=== PATIENT | female | born 1970 | race Hispanic/Latino ===

== ENCOUNTER 2016-08-12 10:25 | Outpatient (CLI) | payer BC, SELFPAY ==
[2016-08-12 11:29] LABS: ALT (SGPT) 16 U/L (0-55); AST (SGOT) 16 U/L (5-34); Alkaline Phosphatase 63 U/L (40-150); Anion Gap 14 mmol/L (10-20); BUN (Urea Nitrogen) 18 mg/dL (7.0-18.7); Bilirubin, Total 0.4 mg/dL (0.2-1.2); Calc. Creatinine Clearance 0 mL/min (70-130); Calcium 9.4 mg/dL (7.8-10.44); Carbon Dioxide 26 mmol/L (22-29); Chloride 104 mmol/L (98-107); Estimated GFR-MDRD 87; Globulin 2.8 g/dL (2.4-3.5); LDL Cholesterol, Calculated 126 mg/dL; Protein, Total 7.2 g/dL (6.0-8.3)
[2016-08-12 12:39] LABS: Hemoglobin A1c 5.8 % (4.0-6.0)
[2016-08-12 13:26] LABS: #Lymphocytes 0.9 thou/uL (1.20-3.40); #Monocytes 0.5 thou/uL (0.11-0.59); #Neutrophils 5.8 thou/uL (1.40-6.50); %Basophils 0.7 % (0.0-1.0); %Eosinophils 0.3 % (0.0-10.0); %Monocytes 7.3 % (0.0-10.0); Elliptocytes SLIGHT = 2-5 cells (100X) (0-1/hpf); Mean Platelet Volume 6.2 fL (7.4-10.4); Microcytosis SLIGHT = 6-15 cells (100X) (0-5/hpf); Poikilocytosis SLIGHT = 6-15 cells (100X) (0-5/hpf); Red Blood Cell (RBC) Count 4.91 mill/uL (4.20-5.40); White Blood Cell (WBC) Count 7.3 thou/uL (4.8-10.8)
== END 2016-08-12 10:26 | disposition home or self-care (01) ==
LOC: HPCALD 10:25
PROVIDERS: ATTEND Family Medicine
DX: D64.9 Anemia, unspecified (principal); R53.82 Chronic fatigue, unspecified; E11.9 Type 2 diabetes mellitus without complications
CPT/HCPCS: 36415; 80053; 80061; 82728; 83036; 84443; 85025; 86038

== ENCOUNTER 2017-02-10 10:44 | Outpatient (CLI) | payer BC ==
[2017-02-10 14:27] LABS: #Basophils 0.1 thou/uL (0.0-0.2); #Eosinphils 0.2 thou/uL (0.0-0.7); #Lymphocytes 1.1 thou/uL (1.20-3.40); #Monocytes 0.4 thou/uL (0.11-0.59); #Neutrophils 3.2 thou/uL (1.40-6.50); %Basophils 1.1 % (0.0-1.0); %Eosinophils 3.4 % (0.0-10.0); %Lymphocytes 22.6 % (21.0-51.0); %Monocytes 7.4 % (0.0-10.0); %Neutrophils 65.5 % (42.0-75.0); Acanthocytes SLIGHT = 1-5 cells (100X) (None Seen); Elliptocytes SLIGHT = 2-5 cells (100X) (0-1/hpf); Hemoglobin 9.2 g/dL (12.0-16.0); Hypochromia MODERATE=16-30 cells (100X) (0-5/hpf); MDiff Complete? YES; Mean Corpuscular HGB CONC 29.7 g/dL (32.0-36.0); Mean Corpuscular Hemoglobin 19.2 pg (27.0-31.0); Mean Corpuscular Volume 64.7 fl (81.0-99.0); Mean Platelet Volume 7.1 fL (7.4-10.4); Microcytosis MARKED = >30 cells (100X) (0-5/hpf); Platelet Count 320 thou/uL (130-400); Polychromasia SLIGHT = 2-3 cells (100X) (0-2/hpf); RBC Distribution Width 15.3 % (11.5-14.5); Red Blood Cell (RBC) Count 4.77 mill/uL (4.20-5.40); White Blood Cell (WBC) Count 4.9 thou/uL (4.8-10.8)
[2017-02-10 17:25] LABS: Reticulocyte Count 1.3 % (0.5-1.5)
[2017-02-10 18:53] LABS: Iron Binding Capacity, Total 511 mcg/dL (265-497)
[2017-02-10 18:54] LABS: Iron 29 ug/dL (50-170)
== END 2017-02-10 10:45 | disposition home or self-care (01) ==
LOC: HPCALD 10:44
PROVIDERS: ATTEND Family Medicine
DX: D50.9 Iron deficiency anemia, unspecified (principal)
CPT/HCPCS: 36415; 82728; 83540; 83550; 85025; 85046

== ENCOUNTER 2018-06-06 11:10 | Emergency (ER) | payer BC, OTHER ==
[2018-06-06] MEDS ORDERED: Ketorolac Tromethamine 60 MG/2 ML VIAL ONE (11:30)
== END 2018-06-06 11:53 | disposition home or self-care (01) ==
LOC: BURERS 11:10
DX: S13.4XXA Sprain of ligaments of cervical spine, initial encounter (principal); J45.909 Unspecified asthma, uncomplicated; F41.9 Anxiety disorder, unspecified; Z79.899 Other long term (current) drug therapy; V49.9XXA Car occupant (driver) (passenger) injured in unspecified traffic accident, initial encounter
CPT/HCPCS: 96372; J1885

== ENCOUNTER 2018-06-13 15:32 | Outpatient (CLI) | payer OTHER ==
--- NOTE | 2018-06-13 22:04 | CT ---
CT OF THE BRAIN WITHOUT CONTRAST: 06/13/[address] of the brain was performed with reconstructions in the coronal and sagittal planes. There i s a history of recent trauma. The ventricles are normal in size with no shift. No intracranial bleeding or extra-axial hematoma was seen. The calvarium appears intact. The sphenoid sinus and mastoid air cells are clear. IMPRESSION: No significant intracranial findings. POS: HOME
== END 2018-06-13 15:33 | disposition home or self-care (01) ==
LOC: BURCT 15:32
PROVIDERS: ATTEND Family Medicine
DX: S06.0X0A Concussion without loss of consciousness, initial encounter (principal)
CPT/HCPCS: 70450

== ENCOUNTER 2020-03-21 09:03 | Outpatient (CLI) | payer OTHER ==
--- NOTE | 2020-03-21 17:49 | RAD ---
RIGHT RIBS THREE VIEWS: 03/21/20 Comparison is made with the 02/01/19 study. All ribs appear intact. No fracture or area of bony destruction was seen. There were no findings to e xplain rib pain. The adjacent right lung is clear. There are no effusions or signs of a pneumothorax. IMPRESSION: No significant finding. POS: HOME
== END 2020-03-21 09:04 | disposition home or self-care (01) ==
LOC: BURRAD 09:03
PROVIDERS: ATTEND Family Medicine
DX: R07.81 Pleurodynia (principal)

== ENCOUNTER 2020-10-30 11:54 | Inpatient (IN) | payer OTHER ==
[~2020-10-30 11:54] MED LIST: Iopamidol 370 76% 100 ML VIAL ONE
[2020-10-30] MEDS ORDERED: Ondansetron PF 4 MG/2 ML Vial ONE (12:31)
[2020-10-30] MEDS ORDERED: Famotidine In NaCl 20 mg/50 ml Premix Bag ONE (12:31)
[2020-10-30] MEDS ORDERED: Fentanyl 100 MCG/2 ML VIAL ONE (12:31)
[2020-10-30] MEDS ORDERED: Glycopyrrolate 0.4 MG/ 2 ML VIAL ONE (12:54)
[2020-10-30] MEDS ORDERED: cefTRIAXone\\ROCEPHIN 2 GM VIAL ONE (12:54)
[2020-10-30] MEDS ORDERED: Sodium Chloride 0.9% 100 ML ONE (12:54)
[2020-10-30 13:05] LABS: Hemoglobin 12.3 g/dL (12.0-16.0); Mean Corpuscular HGB CONC 32.3 g/dL (32.0-36.0); Mean Corpuscular Hemoglobin 24.8 pg (27.0-31.0); Mean Corpuscular Volume 76.7 fL (78.0-98.0); Mean Platelet Volume 7.2 fL (7.4-10.4); Platelet Count 361 thou/uL (130-400); RBC Distribution Width 13.9 % (11.5-14.5); Red Blood Cell (RBC) Count 4.97 mill/uL (4.20-5.40); White Blood Cell (WBC) Count 22.7 thou/uL (4.8-10.8)
[2020-10-30 13:10] LABS: ALT (SGPT) 27 U/L (8-55); AST (SGOT) 13 U/L (5-34); Albumin 3.5 g/dL (3.5-5.0); Alkaline Phosphatase 127 U/L (40-110); Anion Gap 15 mmol/L (10-20); BUN (Urea Nitrogen) 13 mg/dL (9.8-20.1); Bilirubin, Total 0.4 mg/dL (0.2-1.2); Calc. Creatinine Clearance 0 mL/min (70-130); Calcium 8.9 mg/dL (7.8-10.44); Carbon Dioxide 23 mmol/L (22-29); Chloride 98 mmol/L (98-107); Globulin 3.1 g/dL (2.4-3.5); Glucose 182 mg/dL (70-105); Potassium 3.8 mmol/L (3.5-5.1); Protein, Total 6.6 g/dL (6.0-8.3); Sodium 132 mmol/L (136-145)
[2020-10-30 13:28] LABS: Bilirubin Moderate (Negative); Blood, Urine Moderate (Negative); Clarity Clear (Clear); Glucose, Urine (Dipstick) Negative (Negative); Ketone, Urine 40 mg/dL (Negative); Leukocyte Negative (Negative); Nitrite Negative (Negative); Protein, Urine (Dipstick) 100 mg/dL (Neg-Trace); Specific Gravity, Urine 1.025 (1.005-1.030)
[2020-10-30 13:41] LABS: Band 44 % (5-11); Blast 1 % (0-0); Eosinophils 1 % (0-10); Hypochromia SLIGHT = 6-15 cells (100X) (0-5/hpf); Lymphocytes 7 % (21-51); MDiff Complete? YES; Microcytosis SLIGHT = 6-15 cells (100X) (0-5/hpf); Monocytes 8 % (0-10); Neutrophil 38 % (42-75); Platelet Morphology Comment Appears Adequate; Poikilocytosis SLIGHT = 6-15 cells (100X) (0-5/hpf); Reactive Lymphocytes 1 % (0-10); Spherocytes SLIGHT = 1-5 cells (100X) (None Seen)
[2020-10-30 13:44] LABS: Bacteria/HPF Rare-Few HPF (None Seen); Mucous/LPF 1+ LPF (<2+); RBC/HPF 0-3 HPF (0-3); Squamous Epithelial 0-3 HPF (0-3); WBC/HPF 0-3 HPF (0-3)
[2020-10-30] MEDS ORDERED: metroNIDAZOLE 500 MG/100 ML BAG ONE (15:07)
[2020-10-30 16:27] VITALS: BMI 27.8
[2020-10-30] MEDS ORDERED: Albuterol Sulfate 2.5 mg/3 ml Neb NEB PRN (17:19)
[2020-10-30 17:23] LABS: SARS-CoV-2 NAA Rapid Test Not Detected (NotDetected)
[2020-10-30] MEDS ORDERED: Ondansetron ODT 4 MG TAB SL PRN (22:30)
[2020-10-30] MEDS ORDERED: HYDROcodone/Acetaminophen 5/325 mg Tablet PO PRN (22:30)
[2020-10-30] MEDS: Dextrose 5 %-0.45 % NaCl 1,000 ML IV SCH (22:47)
[2020-10-31] MEDS: HYDROcodone/Acetaminophen 5/325 mg Tablet PO PRN (00:25)
[2020-10-31] MEDS: Ondansetron ODT 4 MG TAB PO PRN (00:25)
[2020-10-31] MEDS ORDERED: metroNIDAZOLE 500 MG in Premix Bag 1 BAG IVPB SCH (03:00)
[2020-10-31 05:25] LABS: ALT (SGPT) 18 U/L (8-55); AST (SGOT) 10 U/L (5-34); Albumin 2.7 g/dL (3.5-5.0); Alkaline Phosphatase 99 U/L (40-110); Anion Gap 14 mmol/L (10-20); BUN (Urea Nitrogen) 9 mg/dL (9.8-20.1); Bilirubin, Total 0.2 mg/dL (0.2-1.2); Calc. Creatinine Clearance 124 mL/min (70-130); Calcium 7.8 mg/dL (7.8-10.44); Carbon Dioxide 21 mmol/L (22-29); Chloride 102 mmol/L (98-107); Globulin 2.3 g/dL (2.4-3.5); Glucose 155 mg/dL (70-105); Potassium 3.8 mmol/L (3.5-5.1); Sodium 133 mmol/L (136-145)
[2020-10-31 06:28] LABS: Hemoglobin 11.2 g/dL (12.0-16.0); Mean Corpuscular HGB CONC 32.9 g/dL (32.0-36.0); Mean Corpuscular Hemoglobin 25.1 pg (27.0-31.0); Mean Corpuscular Volume 76.2 fL (78.0-98.0); Mean Platelet Volume 6.9 fL (7.4-10.4); Platelet Count 325 thou/uL (130-400); RBC Distribution Width 13.8 % (11.5-14.5); Red Blood Cell (RBC) Count 4.46 mill/uL (4.20-5.40); White Blood Cell (WBC) Count 23.5 thou/uL (4.8-10.8)
[2020-10-31 06:29] LABS: Band 9 % (5-11); Eosinophils 2 % (0-10); Lymphocytes 8 % (21-51); MDiff Complete? YES; Metamyelocyte 5 % (0-0); Monocytes 2 % (0-10); Myelocyte 2 % (0-0); Neutrophil 68 % (42-75); RBC Morphology Normal; Reactive Lymphocytes 4 % (0-10); Toxic Granulation SLIGHT
[2020-10-31 06:35] LABS: Platelet Morphology Comment Appears Adequate
[2020-10-31] MEDS: Montelukast Sodium 10 mg Tablet PO SCH (08:06)
[2020-10-31] MEDS: Saccharomyces boulardii 250 MG CAP PO SCH (08:23)
[2020-10-31] MEDS: metroNIDAZOLE 500 MG in Premix Bag 1 BAG IVPB SCH ×2 (08:24→14:47)
[2020-10-31] MEDS: Acetaminophen 325 MG TAB PO PRN ×2 (08:46→16:17)
[2020-10-31] MEDS: Amlodipine 10 MG TAB PO SCH (08:52)
[2020-10-31] MEDS: Dextrose 5 %-0.45 % NaCl 1,000 ML IV SCH ×3 (11:24→20:53)
[2020-10-31] MEDS: Hyoscyamine Sulfate SL 0.125 mg Tablet PO PRN (14:48)
[2020-10-31] MEDS: Vancomycin HCl 25 MG/ML Oral PO SCH ×3 (17:28→20:42)
[2020-10-31] MEDS: Enoxaparin Sodium 40 MG/0.4 ML SYRINGE SC SCH (20:45)
[2020-10-31] MEDS: metroNIDAZOLE 250 MG TAB PO SCH (20:45)
[2020-10-31] MEDS ORDERED: Vancomycin HCl 25 MG/ML Oral PO SCH (21:00)
[2020-11-01 05:10] LABS: #Basophils 0.1 thou/uL (0.0-0.2); #Eosinphils 0.2 thou/uL (0.0-0.7); #Lymphocytes 1.1 thou/uL (1.20-3.40); #Monocytes 1.2 thou/uL (0.11-0.59); #Neutrophils 13.9 thou/uL (1.40-6.50); %Basophils 0.5 % (0.0-1.0); %Eosinophils 1.4 % (0.0-10.0); %Lymphocytes 6.7 % (21.0-51.0); %Neutrophils 84.4 % (42.0-75.0); Hemoglobin 10.8 g/dL (12.0-16.0); Mean Corpuscular Hemoglobin 24.3 pg (27.0-31.0); Mean Corpuscular Volume 76.1 fL (78.0-98.0); Mean Platelet Volume 6.8 fL (7.4-10.4); Platelet Count 342 thou/uL (130-400); RBC Distribution Width 14.1 % (11.5-14.5); Red Blood Cell (RBC) Count 4.44 mill/uL (4.20-5.40); White Blood Cell (WBC) Count 16.5 thou/uL (4.8-10.8)
[2020-11-01 05:30] LABS: Platelet Morphology Comment Appears Adequate; RBC Morphology Normal
[2020-11-01 05:32] LABS: ALT (SGPT) 16 U/L (8-55); AST (SGOT) 9 U/L (5-34); Albumin 2.5 g/dL (3.5-5.0); Alkaline Phosphatase 105 U/L (40-110); Anion Gap 13 mmol/L (10-20); BUN (Urea Nitrogen) 6 mg/dL (9.8-20.1); Bilirubin, Total Less than 0.2 mg/dL (0.2-1.2); Calc. Creatinine Clearance 126 mL/min (70-130); Calcium 7.6 mg/dL (7.8-10.44); Carbon Dioxide 22 mmol/L (22-29); Chloride 100 mmol/L (98-107); Glucose 168 mg/dL (70-105); Potassium 3.3 mmol/L (3.5-5.1); Protein, Total 4.5 g/dL (6.0-8.3); Sodium 132 mmol/L (136-145)
[2020-11-01] MEDS: Dextrose 5 %-0.45 % NaCl 1,000 ML IV SCH (05:51)
[2020-11-01] MEDS: Vancomycin HCl 25 MG/ML Oral PO SCH ×4 (08:12→20:04)
[2020-11-01] MEDS: Saccharomyces boulardii 250 MG CAP PO SCH (08:14)
[2020-11-01] MEDS: Montelukast Sodium 10 mg Tablet PO SCH (08:14)
[2020-11-01] MEDS: metroNIDAZOLE 250 MG TAB PO SCH ×3 (08:14→20:05)
[2020-11-01] MEDS: Amlodipine 10 MG TAB PO SCH (08:14)
[2020-11-01] MEDS: D5 0.9% NS w/ 20 mEq KCl 1,000 ML IV SCH ×2 (11:47→20:05)
[2020-11-01] MEDS: Hyoscyamine Sulfate SL 0.125 mg Tablet PO PRN (11:53)
[2020-11-01] MEDS: HYDROcodone/Acetaminophen 5/325 mg Tablet PO PRN (14:04)
[2020-11-01] MEDS: Enoxaparin Sodium 40 MG/0.4 ML SYRINGE SC SCH (20:05)
[2020-11-02 06:05] LABS: #Basophils 0.1 thou/uL (0.0-0.2); #Eosinphils 0.1 thou/uL (0.0-0.7); #Monocytes 1.3 thou/uL (0.11-0.59); %Basophils 0.7 % (0.0-1.0); %Eosinophils 0.7 % (0.0-10.0); %Lymphocytes 6.5 % (21.0-51.0); %Monocytes 8.4 % (0.0-10.0); %Neutrophils 83.7 % (42.0-75.0); Hemoglobin 10.5 g/dL (12.0-16.0); MDiff Complete? YES; Mean Corpuscular HGB CONC 31.7 g/dL (32.0-36.0); Mean Corpuscular Hemoglobin 24.2 pg (27.0-31.0); Mean Corpuscular Volume 76.3 fL (78.0-98.0); Mean Platelet Volume 6.7 fL (7.4-10.4); Platelet Count 360 thou/uL (130-400); Platelet Morphology Comment Appears Adequate; RBC Distribution Width 14.4 % (11.5-14.5); RBC Morphology Normal; Red Blood Cell (RBC) Count 4.32 mill/uL (4.20-5.40); Toxic Granulation SLIGHT; White Blood Cell (WBC) Count 15.5 thou/uL (4.8-10.8)
[2020-11-02] MEDS: Ondansetron PF 4 MG/2 ML Vial IVP PRN (07:27)
[2020-11-02] MEDS: D5 0.9% NS w/ 20 mEq KCl 1,000 ML IV SCH ×2 (07:29→17:36)
[2020-11-02] MEDS: Hyoscyamine Sulfate SL 0.125 mg Tablet PO PRN ×3 (08:38→16:26)
[2020-11-02] MEDS: Saccharomyces boulardii 250 MG CAP PO SCH (09:45)
[2020-11-02] MEDS: Montelukast Sodium 10 mg Tablet PO SCH (09:45)
[2020-11-02] MEDS: metroNIDAZOLE 250 MG TAB PO SCH ×3 (09:45→20:41)
[2020-11-02] MEDS: Amlodipine 10 MG TAB PO SCH (09:46)
[2020-11-02] MEDS: Vancomycin HCl 25 MG/ML Oral PO SCH ×4 (09:46→20:42)
[2020-11-02] MEDS: Acetaminophen 325 MG TAB PO PRN (16:32)
[2020-11-02] MEDS: Enoxaparin Sodium 40 MG/0.4 ML SYRINGE SC SCH (20:41)
[2020-11-03] MEDS ORDERED: Potassium Chloride 20 MEQ/100 ML PREMIX BAG ONE (03:53)
[2020-11-03] MEDS ORDERED: Potassium Chloride 20 MEQ in Premix Bag 1 BAG IVPB ONE (04:00)
[2020-11-03] MEDS ORDERED: Dextrose 5 % And 0.9 % NaCl 1,000 ML IV SCH (04:00)
[2020-11-03] MEDS: D5 0.9% NS w/ 20 mEq KCl 1,000 ML IV SCH ×3 (04:10→23:34)
[2020-11-03 05:49] LABS: #Basophils 0.1 thou/uL (0.0-0.2); #Eosinphils 0.1 thou/uL (0.0-0.7); #Lymphocytes 1.3 thou/uL (1.20-3.40); #Neutrophils 10.8 thou/uL (1.40-6.50); %Basophils 0.9 % (0.0-1.0); %Lymphocytes 9.5 % (21.0-51.0); %Monocytes 7.4 % (0.0-10.0); %Neutrophils 81.2 % (42.0-75.0); Hemoglobin 10.7 g/dL (12.0-16.0); Mean Corpuscular HGB CONC 33.2 g/dL (32.0-36.0); Mean Corpuscular Hemoglobin 24.9 pg (27.0-31.0); Mean Corpuscular Volume 74.9 fL (78.0-98.0); Mean Platelet Volume 6.3 fL (7.4-10.4); Platelet Count 350 thou/uL (130-400); RBC Distribution Width 14.3 % (11.5-14.5); Red Blood Cell (RBC) Count 4.31 mill/uL (4.20-5.40); White Blood Cell (WBC) Count 13.2 thou/uL (4.8-10.8)
[2020-11-03 06:00] LABS: ALT (SGPT) 23 U/L (8-55); AST (SGOT) 37 U/L (5-34); Albumin 2.3 g/dL (3.5-5.0); Alkaline Phosphatase 83 U/L (40-110); Anion Gap 13 mmol/L (10-20); BUN (Urea Nitrogen) Less than 4 mg/dL (9.8-20.1); Bilirubin, Total Less than 0.2 mg/dL (0.2-1.2); Calc. Creatinine Clearance 140 mL/min (70-130); Calcium 7.5 mg/dL (7.8-10.44); Carbon Dioxide 22 mmol/L (22-29); Chloride 105 mmol/L (98-107); Globulin 2.3 g/dL (2.4-3.5); Glucose 149 mg/dL (70-105); Potassium 3.5 mmol/L (3.5-5.1); Protein, Total 4.6 g/dL (6.0-8.3); Sodium 136 mmol/L (136-145)
[2020-11-03 06:15] LABS: Hypochromia SLIGHT = 6-15 cells (100X) (0-5/hpf); MDiff Complete? YES; Microcytosis SLIGHT = 6-15 cells (100X) (0-5/hpf); Small Platelets SLIGHT
[2020-11-03] MEDS: Acetaminophen 325 MG TAB PO PRN ×4 (07:46→21:19)
[2020-11-03] MEDS: Hyoscyamine Sulfate SL 0.125 mg Tablet PO PRN ×4 (07:46→21:19)
[2020-11-03] MEDS: Montelukast Sodium 10 mg Tablet PO SCH (08:57)
[2020-11-03] MEDS: Vancomycin HCl 25 MG/ML Oral PO SCH ×4 (08:57→21:20)
[2020-11-03] MEDS: Saccharomyces boulardii 250 MG CAP PO SCH (08:57)
[2020-11-03] MEDS: metroNIDAZOLE 250 MG TAB PO SCH ×3 (08:57→21:20)
[2020-11-03] MEDS: Enoxaparin Sodium 40 MG/0.4 ML SYRINGE SC SCH (21:20)
[2020-11-04] MEDS: Ondansetron ODT 4 MG TAB PO PRN (03:12)
[2020-11-04] MEDS: Hyoscyamine Sulfate SL 0.125 mg Tablet PO PRN ×3 (04:04→13:41)
[2020-11-04] MEDS: Acetaminophen 325 MG TAB PO PRN ×3 (04:04→13:42)
[2020-11-04 04:54] LABS: ALT (SGPT) 28 U/L (8-55); AST (SGOT) 32 U/L (5-34); Albumin 2.3 g/dL (3.5-5.0); Alkaline Phosphatase 80 U/L (40-110); Anion Gap 12 mmol/L (10-20); BUN (Urea Nitrogen) Less than 4 mg/dL (9.8-20.1); Bilirubin, Total Less than 0.2 mg/dL (0.2-1.2); Calc. Creatinine Clearance 142 mL/min (70-130); Calcium 7.4 mg/dL (7.8-10.44); Carbon Dioxide 20 mmol/L (22-29); Chloride 106 mmol/L (98-107); Globulin 2.2 g/dL (2.4-3.5); Glucose 143 mg/dL (70-105); Potassium 3.4 mmol/L (3.5-5.1); Protein, Total 4.5 g/dL (6.0-8.3); Sodium 135 mmol/L (136-145)
[2020-11-04 05:01] LABS: #Basophils 0.1 thou/uL (0.0-0.2); #Eosinphils 0.1 thou/uL (0.0-0.7); #Lymphocytes 1.3 thou/uL (1.20-3.40); #Monocytes 0.8 thou/uL (0.11-0.59); #Neutrophils 11.3 thou/uL (1.40-6.50); %Basophils 0.9 % (0.0-1.0); %Lymphocytes 9.6 % (21.0-51.0); %Monocytes 5.8 % (0.0-10.0); %Neutrophils 82.8 % (42.0-75.0); Hemoglobin 10.4 g/dL (12.0-16.0); MDiff Complete? YES; Mean Corpuscular HGB CONC 32.1 g/dL (32.0-36.0); Mean Corpuscular Hemoglobin 24.6 pg (27.0-31.0); Mean Corpuscular Volume 76.7 fL (78.0-98.0); Mean Platelet Volume 5.8 fL (7.4-10.4); Microcytosis SLIGHT = 6-15 cells (100X) (0-5/hpf); Ovalocytes SLIGHT = 2-5 cells (100X) (0-1/hpf); Platelet Count 398 thou/uL (130-400); Platelet Morphology Comment Appears Adequate; RBC Distribution Width 14.5 % (11.5-14.5); Red Blood Cell (RBC) Count 4.24 mill/uL (4.20-5.40); Small Platelets SLIGHT; Toxic Granulation SLIGHT; White Blood Cell (WBC) Count 13.7 thou/uL (4.8-10.8)
[2020-11-04] MEDS: Montelukast Sodium 10 mg Tablet PO SCH (09:38)
[2020-11-04] MEDS: Saccharomyces boulardii 250 MG CAP PO SCH (09:38)
[2020-11-04] MEDS: metroNIDAZOLE 250 MG TAB PO SCH ×3 (09:38→20:16)
[2020-11-04] MEDS: D5 0.9% NS w/ 20 mEq KCl 1,000 ML IV SCH ×2 (09:38→20:15)
[2020-11-04] MEDS: Vancomycin HCl 25 MG/ML Oral PO SCH ×4 (09:39→20:16)
[2020-11-04] MEDS: Ondansetron PF 4 MG/2 ML Vial IVP PRN ×2 (09:47→18:48)
[2020-11-04] MEDS ORDERED: DEXTROAMPHETAMINE PO SCH (13:45)
[2020-11-04] MEDS ORDERED: AMPHETAMINE PO SCH (13:45)
[2020-11-04] MEDS: Enoxaparin Sodium 40 MG/0.4 ML SYRINGE SC SCH (20:15)
[2020-11-04] MEDS: Promethazine 25 MG TAB PO SCH (20:16)
[2020-11-05] MEDS: Hyoscyamine Sulfate SL 0.125 mg Tablet PO PRN
[2020-11-05] MEDS: Acetaminophen 325 MG TAB PO PRN
[2020-11-05 04:46] LABS: ALT (SGPT) 24 U/L (8-55); AST (SGOT) 23 U/L (5-34); Albumin 2.3 g/dL (3.5-5.0); Alkaline Phosphatase 50 U/L (40-110); Anion Gap 11 mmol/L (10-20); BUN (Urea Nitrogen) Less than 4 mg/dL (9.8-20.1); Bilirubin, Total Less than 0.2 mg/dL (0.2-1.2); Calc. Creatinine Clearance 142 mL/min (70-130); Calcium 7.4 mg/dL (7.8-10.44); Carbon Dioxide 24 mmol/L (22-29); Chloride 105 mmol/L (98-107); Globulin 2.1 g/dL (2.4-3.5); Glucose 124 mg/dL (70-105); Potassium 3.6 mmol/L (3.5-5.1); Protein, Total 4.4 g/dL (6.0-8.3); Sodium 136 mmol/L (136-145)
[2020-11-05 04:50] LABS: #Basophils 0.1 thou/uL (0.0-0.2); #Eosinphils 0.1 thou/uL (0.0-0.7); #Lymphocytes 1.4 thou/uL (1.20-3.40); #Monocytes 0.7 thou/uL (0.11-0.59); #Neutrophils 8.1 thou/uL (1.40-6.50); %Basophils 0.6 % (0.0-1.0); %Eosinophils 1.3 % (0.0-10.0); %Lymphocytes 13.8 % (21.0-51.0); %Monocytes 6.6 % (0.0-10.0); %Neutrophils 77.7 % (42.0-75.0); Burr Cells SLIGHT = 2-5 cells (100X) (0-1/hpf); Hemoglobin 10.2 g/dL (12.0-16.0); MDiff Complete? YES; Mean Corpuscular HGB CONC 31.4 g/dL (32.0-36.0); Mean Corpuscular Hemoglobin 24.3 pg (27.0-31.0); Mean Corpuscular Volume 77.5 fL (78.0-98.0); Mean Platelet Volume 5.5 fL (7.4-10.4); Microcytosis SLIGHT = 6-15 cells (100X) (0-5/hpf); Ovalocytes SLIGHT = 2-5 cells (100X) (0-1/hpf); Platelet Count 401 thou/uL (130-400); Platelet Morphology Comment Appears Increased; RBC Distribution Width 14.6 % (11.5-14.5); Red Blood Cell (RBC) Count 4.18 mill/uL (4.20-5.40); Small Platelets SLIGHT; Toxic Granulation SLIGHT; White Blood Cell (WBC) Count 10.4 thou/uL (4.8-10.8)
[2020-11-05] MEDS: D5 0.9% NS w/ 20 mEq KCl 1,000 ML IV SCH (05:49)
[2020-11-05 06:12] LABS: Norovirus GI Negative (Negative); Norovirus GII Negative (Negative)
[2020-11-05] MEDS: Montelukast Sodium 10 mg Tablet PO SCH (09:55)
[2020-11-05] MEDS: metroNIDAZOLE 250 MG TAB PO SCH ×3 (09:55→21:11)
[2020-11-05] MEDS: Saccharomyces boulardii 250 MG CAP PO SCH (09:56)
[2020-11-05] MEDS: Vancomycin HCl 25 MG/ML Oral PO SCH ×4 (09:56→21:11)
[2020-11-05] MEDS: DEXTROAMPHETAMINE PO SCH (10:16)
[2020-11-05] MEDS: AMPHETAMINE PO SCH (10:16)
[2020-11-05] MEDS: Enoxaparin Sodium 40 MG/0.4 ML SYRINGE SC SCH (21:10)
[2020-11-05] MEDS: Promethazine 25 MG TAB PO SCH (21:11)
[2020-11-06 04:59] VITALS: BP 116/56; TEMP 97.2
[2020-11-06] MEDS: Vancomycin HCl 25 MG/ML Oral PO SCH (08:37)
[2020-11-06] MEDS: metroNIDAZOLE 250 MG TAB PO SCH (09:50)
[2020-11-06] MEDS: Montelukast Sodium 10 mg Tablet PO SCH (09:51)
[2020-11-06] MEDS: Saccharomyces boulardii 250 MG CAP PO SCH (09:51)
[2020-11-06] MEDS: AMPHETAMINE PO SCH (09:57)
[2020-11-06] MEDS: DEXTROAMPHETAMINE PO SCH (09:57)
[2020-11-12 17:13] LABS: Routine O & P Final report (.)
== END 2020-11-06 12:00 | disposition home or self-care (01) | DRG 373 ==
LOC: BURERS 11:54 → BURMED 15:27
PROVIDERS: ADMIT Family Medicine; ATTEND Family Medicine
DX: A04.72 Enterocolitis due to Clostridium difficile, not specified as recurrent (principal); I10 Essential (primary) hypertension; M79.7 Fibromyalgia; R73.03 Prediabetes; E86.0 Dehydration; Z90.49 Acquired absence of other specified parts of digestive tract; Z91.013 Allergy to seafood
CPT/HCPCS: 0240U; 36415; 74177; 80053; 81003; 81015; 83605; 85025; 85060; 87040; 87045; 87046; 87086; 87177; 87324; 87427; 87449; 87798; 96365; 96367; 96375; J0696; J1650; J1956; J2405; J3010; J3480; J3490; J7042; Q0162; Q0169; Q9967

== ENCOUNTER 2023-01-28 11:54 | Outpatient (CLI) | payer OTHER | END 2023-01-28 11:55 | disposition home or self-care (01) | LOC: BURRAD 11:54 | PROVIDERS: ATTEND Family Medicine | DX: R07.9 Chest pain, unspecified (principal) | CPT/HCPCS: 71046 ==